=== PATIENT | male | born 1965 | race Caucasian/White ===

== ENCOUNTER 2020-01-02 01:49 | Emergency (ER) | payer OTHER ==
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
[2020-01-02 05:03] VITALS: BP 163/93
== END 2020-01-02 05:03 | disposition home or self-care (01) ==
LOC: ER 01:49
DX: M25.562 Pain in left knee (principal); V89.2XXA Person injured in unspecified motor-vehicle accident, traffic, initial encounter
CPT/HCPCS: 99283